=== PATIENT | male | born 1965 | race Caucasian/White ===

== ENCOUNTER 2020-12-06 11:04 | Emergency (ER) | payer OTHER ==
[2020-12-06 11:11] VITALS: BP 145/81; PULSE 78
[2020-12-06] MEDS: Bacitracin/Neomycin/Polymyxin B Oint 0.9 GM U/D Packet TOP ONE (11:30)
--- NOTE | 2020-12-06 11:44 | EDM.PDOC ---
ED HPI GENERAL MEDICAL PROBLEM - General Chief Complaint: General Stated Complaint: laceration Time Seen by Provider: 12/06/20 11:30 Source of Information: Reports: Patient History Limitations: Reports: No Limitations - History of Present Illness INITIAL COMMENTS - FREE TEXT/NARRATIVE: Venkata is a 55 year old who presents to ER with a laceration to the dorsum of his right hand. Was moving a porcelain toilet and is unsure exactly what he cut his hand on. Good sensation and movement of all fingers on right hand. Bleeding controlled with minimal pressure. Onset: Today, Sudden Duration: Minutes: Location: Reports: Upper Extremity, Right Quality: Reports: Ache Severity: Mild Associated Symptoms: Reports: No Other Symptoms Treatments TEACHER: Reports: Dressing(s) - Related Data Allergies Allergy/AdvReac Type Severity Reaction Status Date / Time Sulfa (Sulfonamide Allergy Hives Verified 12/06/20 11:13 Antibiotics) Home Meds: Home Meds Esomeprazole Magnesium [Nexium] 40 mg PO DAILY 05/20/15 [History] Losartan/Hydrochlorothiazide [Losartan-HCTZ 100-25 MG] 100 mg PO DAILY 05/20/15 [History] Eplerenone [Inspra] 25 mg PO DAILY 12/06/20 [History] Past Medical History HEENT History: Reports: Impaired Vision Cardiovascular History: Reports: Hypertension Social & Family History - Tobacco Use Tobacco Use Status *Q: Former Tobacco User Years of Tobacco use: 10 Used Tobacco, but Quit: Yes Month/Year Tobacco Last Used: 2010 - Caffeine Use Caffeine Use: Reports: Coffee, Soda - Recreational Drug Use Recreational Drug Use: No ED ROS GENERAL - Review of Systems Review Of Systems: Comprehensive ROS is negative, except as noted in HPI. ED EXAM, GENERAL - Physical Exam Exam: See Below Exam Limited By: No Limitations General Appearance: Alert, WD/WN, No Apparent Distress Extremities: Normal Range of Motion, Normal Capillary Refill Skin Exam: Wound/Incision ED GENERAL MEDICAL PROCEDURES - Laceration/Wound Repair Right Hand Lac/wound length in cm: 3 Appearance: Superficial Distal NVT: Neuro & Vascular Intact Anesthetic Type: Local Local Anesthesia - Lidocaine (Xylocaine): 1% Plain Local Anesthetic Volume: 3cc Skin Prep: Other (costa-cleans) Exploration/Debridement/Repair: Wound Explored, Explored to Base Closed with: Sutures Suture Size: 4-0 # of Sutures: 5 Suture Type: Nylon, Interrupted, Simple Sterile Dressing Applied: Nurse Tetanus Status Addressed: Yes Complications: No Course - Vital Signs Last Recorded V/S: Last Vital Signs Temp 96.8 F L 12/06/20 11:07 Pulse 78 12/06/20 11:07 Resp 20 12/06/20 11:07 BP 145/81 H 12/06/20 11:07 Pulse Ox 96 12/06/20 11:07 - Orders/Labs/Meds Meds: Medications Discontinued Medications Generic Name Dose Route Start Last Admin Trade Name Eliel PRN Reason Stop Dose Admin Lidocaine HCl 5 ml 12/06/20 11:19 12/06/20 11:31 Lidocaine 1% 5 Ml Sdv INJECT 12/06/20 11:20 5 ml ONETIME ONE Administration Neomycin/Polymyxin/Bacitracin 1 each 12/06/20 11:19 12/06/20 11:30 Bacitracin/Neomycin/Polymyxin B Oint 0.9 Gm U/D Packet TOP 12/06/20 11:20 1 each ONETIME ONE Administration Departure - Departure Time of Disposition: 11:42 Disposition: Home, Self-Care 01 Condition: Good Clinical Impression: Laceration - Discharge Information *PRESCRIPTION DRUG MONITORING PROGRAM REVIEWED*: No *COPY OF PRESCRIPTION DRUG MONITORING REPORT IN PATIENT NGUYEN: No Instructions: Laceration Care, Adult Forms: ED Department Discharge Additional Instructions: 1. Keep wound clean and dry 2. Sutures out in 10 days 3. Triple antibiotic on wound for the next 3 days 4. Follow wound care instructions, notify us of concerns. 5. Keep covered if exposed to elements 6. Call with any concerns or questions Sepsis Event Note (ED) - Evaluation Sepsis Screening Result: No Definite Risk - Focused Exam Vital Signs: Vital Signs Temp Pulse Resp BP Pulse Ox 12/06/20 11:07 96.8 F L 78 20 145/81 H 96
== END 2020-12-06 11:46 | disposition home or self-care (01) ==
LOC: CC.ED 11:04
DX: S61.411A Laceration without foreign body of right hand, initial encounter (principal); I10 Essential (primary) hypertension; Z88.2 Allergy status to sulfonamides; Z87.891 Personal history of nicotine dependence; W26.9XXA Contact with unspecified sharp object(s), initial encounter
CPT/HCPCS: 12002; 99282-25

== ENCOUNTER → 2022-06-24 | Day surgery (SDC) | payer OTHER ==
[~2022-06-24] MED LIST: Flumazenil 0.1 MG/ML 10 ML MDV ONE; Lactated Ringers 1,000 ML IV ONE; Midazolam 1 MG/ML 2 ML SDV ONE; Phenylephrine 1% 10 MG/ML SDV ONE; Propofol 200 MG/20 ML SDV ONE; ePHEDrine 50 MG/ML SDV ONE; fentaNYL 50 MCG/ML SDV ONE
== END ==
LOC: CC.SDS 06:00
PROVIDERS: ATTEND Family Medicine
DX: Z12.11 Encounter for screening for malignant neoplasm of colon (principal); K57.30 Diverticulosis of large intestine without perforation or abscess without bleeding; I10 Essential (primary) hypertension; Z79.899 Other long term (current) drug therapy; Z88.2 Allergy status to sulfonamides; Z98.890 Other specified postprocedural states
CPT/HCPCS: 00812; J2250; J2370; J2704; J3010; J7120

== ENCOUNTER 2024-05-09 16:40 | Inpatient (IN) | payer OTHER ==
[2024-05-09 17:09] LABS: BASOPHILS ABSOLUTE AUTO 0.04 10^3/uL (0.00-0.50); BASOPHILS PERCENT AUTO 0.2 % (0-1); EOSINOPHILS ABSOLUTE AUTO 0.04 10^3/uL (0.00-1.50); EOSINOPHILS PERCENT AUTO 0.2 % (0-6); HEMATOCRIT 46.3 % (42.0-52.0); HEMOGLOBIN 15.3 g/dL (14.0-18.0); IMMATURE GRAN ABSOLUTE AUTO 0.03 10^3/uL (0.00-0.49); IMMATURE GRAN PERCENT AUTO 0.2 % (0.0-4.9); LYMPHOCYTES ABSOLUTE AUTO 1.33 10^3/uL (0.60-5.00); LYMPHOCYTES PERCENT AUTO 7.6 % (24-44); MEAN CORPUSCULAR HEMOGLOBIN 29.4 pg (27.0-32.0); MEAN CORPUSCULAR VOLUME 88.9 fL (83.0-97.0); MONOCYTES ABSOLUTE AUTO 1.08 10^3/uL (0.00-1.50); MONOCYTES PERCENT AUTO 6.2 % (0-10); NEUTROPHILS ABSOLUTE AUTO 14.89 x10^3/uL (1.80-8.00); NEUTROPHILS PERCENT AUTO 85.6 % (41-71); PLATELET COUNT,PLT 256 10^3/uL (150-400); RED BLOOD CELL COUNT 5.21 x10^6/uL (4.50-6.00); WHITE BLOOD CELL COUNT,WBC 17.4 10^3/uL (4.0-11.0)
[2024-05-09] MEDS: Sodium Chloride 0.9% 1,000 ML IV ONE (17:11)
[2024-05-09 17:25] LABS: ALANINE AMINOTRANSFERASE,ALT 26 U/L (12-78); ALBUMIN 3.5 g/dL (3.4-5.0); ALKALINE PHOSPHATASE 98 U/L (46-116); ASPARTATE AMNIOTRANSFERASE,AST 18 U/L (15-37); BILIRUBIN TOTAL 1.3 mg/dL (0.0-1.0); BLOOD UREA NITROGEN,BUN 14 mg/dL (7-18); C-REACTIVE PROTEIN 5.26 mg/dL (<=0.50); CALCIUM 9.2 mg/dL (8.4-10.1); CARBON DIOXIDE,CO2 29 mmol/L (21-32); CHLORIDE,CL 100 mEq/L (98-106); CREATININE 1.1 mg/dL (0.7-1.3); EST CRCL DRUG DOSING (CG) 85.35 mL/min; GLUCOSE RANDOM 109 mg/dL (75-99); POTASSIUM,K 3.7 mEq/L (3.5-5.0); PROTEIN TOTAL,TP 7.7 g/dL (6.4-8.2); SODIUM,NA 137 mEq/L (136-145)
[2024-05-09 17:26] LABS: ESTIMATED GFR 77 mL/min (>=60)
[2024-05-09] MEDS: Iopamidol 755 Mg/ML 100 ML Bottle IVPUSH ONE (18:01)
[2024-05-09] MEDS ORDERED: Ondansetron 4 MG Tab.DIS PO PRN (19:30)
[2024-05-09] MEDS ORDERED: Ibuprofen 200 MG Tab PO PRN (19:30)
[2024-05-09] MEDS ORDERED: Ondansetron 4 MG/2 ML SDV IV PRN (19:30)
[2024-05-09] MEDS ORDERED: Acetaminophen 325 MG Tab PO PRN (19:30)
[2024-05-09] MEDS: Sodium Chloride 0.9% 1,000 ML IV SCH (20:46)
[2024-05-09] MEDS: Piperacillin/Tazobactam 4.5 GM in Sodium Chloride 0.9% 100 ML IV ONE (20:48)
[2024-05-09 22:13] LABS: APPEARANCE,URINE CLEAR (CLEAR); BILIRUBIN,URINE NEGATIVE (NEGATIVE); COLOR,URINE YELLOW (YELLOW); GLUCOSE,URINE NEGATIVE (NEGATIVE); KETONES,URINE NEGATIVE (NEGATIVE); LEUKOCYTE ESTERASE,URINE NEGATIVE (NEGATIVE); NITRITE,URINE NEGATIVE (NEGATIVE); OCCULT BLOOD,URINE TRACE-INTACT (NEGATIVE); PROTEIN,URINE NEGATIVE (NEGATIVE); UROBILINOGEN,URINE 0.2 EU/dL (0.2-1.0)
[2024-05-09 22:25] LABS: BACTERIA,URINE NOT SEEN /HPF (NOT SEEN); RBC,URINE 0-5 /HPF (0-5); SQUAMOUS EPITHELIAL CELLS,UR NOT SEEN /HPF (NOT SEEN); WBC,URINE NOT SEEN /HPF (0-5)
[2024-05-10] MEDS: Piperacillin/Tazobactam 4.5 GM in Sodium Chloride 0.9% 100 ML IV SCH (00:43)
[2024-05-10 07:44] LABS: BASOPHILS ABSOLUTE AUTO 0.04 10^3/uL (0.00-0.50); BASOPHILS PERCENT AUTO 0.4 % (0-1); EOSINOPHILS ABSOLUTE AUTO 0.09 10^3/uL (0.00-1.50); EOSINOPHILS PERCENT AUTO 0.9 % (0-6); HEMOGLOBIN 13.9 g/dL (14.0-18.0); IMMATURE GRAN ABSOLUTE AUTO 0.02 10^3/uL (0.00-0.49); IMMATURE GRAN PERCENT AUTO 0.2 % (0.0-4.9); LYMPHOCYTES ABSOLUTE AUTO 1.16 10^3/uL (0.60-5.00); LYMPHOCYTES PERCENT AUTO 11.5 % (24-44); MEAN CORPUSCULAR HEMOGLOBIN 29.7 pg (27.0-32.0); MEAN CORPUSCULAR HGB CONC 33.1 g/dL (32.0-36.0); MEAN CORPUSCULAR VOLUME 89.7 fL (83.0-97.0); MONOCYTES ABSOLUTE AUTO 0.89 10^3/uL (0.00-1.50); MONOCYTES PERCENT AUTO 8.8 % (0-10); NEUTROPHILS ABSOLUTE AUTO 7.91 x10^3/uL (1.80-8.00); NEUTROPHILS PERCENT AUTO 78.2 % (41-71); PLATELET COUNT,PLT 229 10^3/uL (150-400); RED BLOOD CELL COUNT 4.68 x10^6/uL (4.50-6.00); WHITE BLOOD CELL COUNT,WBC 10.1 10^3/uL (4.0-11.0)
[2024-05-10] MEDS: Losartan 100 MG Tab PO SCH (07:56)
[2024-05-10] MEDS: Hydrochlorothiazide 25 MG Tab PO SCH (07:56)
[2024-05-10] MEDS: atorvaSTATin 10 MG Tab PO SCH (07:56)
[2024-05-10] MEDS: Pantoprazole 40 MG Tab.CR PO SCH (07:56)
[2024-05-10 08:03] LABS: ALBUMIN 2.8 g/dL (3.4-5.0); BILIRUBIN TOTAL 1.4 mg/dL (0.0-1.0); C-REACTIVE PROTEIN 9.63 mg/dL (<=0.50); CALCIUM 8.2 mg/dL (8.4-10.1); CREATININE 1.1 mg/dL (0.7-1.3); EST CRCL DRUG DOSING (CG) 85.35 mL/min; POTASSIUM,K 3.5 mEq/L (3.5-5.0); PROTEIN TOTAL,TP 6.5 g/dL (6.4-8.2)
[2024-05-11 07:33] VITALS: BP 115/76
[2024-05-11 07:59] VITALS: PULSE 68
[2024-05-11 08:02] LABS: BASOPHILS ABSOLUTE AUTO 0.05 10^3/uL (0.00-0.50); BASOPHILS PERCENT AUTO 0.7 % (0-1); EOSINOPHILS ABSOLUTE AUTO 0.12 10^3/uL (0.00-1.50); EOSINOPHILS PERCENT AUTO 1.7 % (0-6); HEMATOCRIT 42.8 % (42.0-52.0); HEMOGLOBIN 14.1 g/dL (14.0-18.0); IMMATURE GRAN ABSOLUTE AUTO 0.02 10^3/uL (0.00-0.49); IMMATURE GRAN PERCENT AUTO 0.3 % (0.0-4.9); LYMPHOCYTES ABSOLUTE AUTO 1.11 10^3/uL (0.60-5.00); LYMPHOCYTES PERCENT AUTO 15.5 % (24-44); MEAN CORPUSCULAR HEMOGLOBIN 29.6 pg (27.0-32.0); MEAN CORPUSCULAR HGB CONC 32.9 g/dL (32.0-36.0); MEAN CORPUSCULAR VOLUME 89.7 fL (83.0-97.0); MONOCYTES ABSOLUTE AUTO 0.57 10^3/uL (0.00-1.50); MONOCYTES PERCENT AUTO 7.9 % (0-10); NEUTROPHILS ABSOLUTE AUTO 5.31 x10^3/uL (1.80-8.00); NEUTROPHILS PERCENT AUTO 73.9 % (41-71); PLATELET COUNT,PLT 242 10^3/uL (150-400); RED BLOOD CELL COUNT 4.77 x10^6/uL (4.50-6.00); WHITE BLOOD CELL COUNT,WBC 7.2 10^3/uL (4.0-11.0)
[2024-05-11 08:09] LABS: ALBUMIN 2.8 g/dL (3.4-5.0); C-REACTIVE PROTEIN 5.68 mg/dL (<=0.50); CALCIUM 8.6 mg/dL (8.4-10.1); CREATININE 1.1 mg/dL (0.7-1.3); EST CRCL DRUG DOSING (CG) 85.35 mL/min; POTASSIUM,K 3.6 mEq/L (3.5-5.0)
== END 2024-05-11 10:45 | disposition home or self-care (01) | DRG 392 ==
LOC: CC.ED 16:40 → CC.MS 19:00 → UNDOADMIN 19:28 → CC.MS 19:28
PROVIDERS: ADMIT Physician Assistant Medical; ATTEND Physician Assistant Medical
DX: K57.32 Diverticulitis of large intestine without perforation or abscess without bleeding (principal); I10 Essential (primary) hypertension; H54.7 Unspecified visual loss; Z88.2 Allergy status to sulfonamides; Z79.899 Other long term (current) drug therapy
CPT/HCPCS: 36415; 70450; 71046; 74177; 80053; 81001; 84484; 85025; 85379; 86140; 93005; 96360; 99223; 99233; 99239; 99285-25; A9270-GY; J2543; J3490; J7030; Q9967